=== PATIENT | male | born 2000 ===

== ENCOUNTER 2024-10-28 02:47 | Emergency (ER) | payer MEDICAID, SELFPAY ==
[2024-10-28 02:52] VITALS: BP 129/76; PULSE 82; RESP 16; TEMP 36.7; O2SAT 99; BMI 24.4
--- NOTE | 2024-10-28 03:13 | ED.URI ---
HPI - URI/Sore Throat General Chief Complaint: Upper Respiratory Symptoms Stated Complaint: Flu like Time Seen by Provider: 10/28/24 02:56 History of Present Illness ED Provider: Isaias Denise MD HPI Narrative: 23-year-old male with cough and phlegm production. Patient also reports sore throat he felt like he saw some white material possibly exudate on the tonsil and was concerned about they came in. No abdominal pain vomiting no chest pain. No ENT history. Related Data Allergies Allergy/AdvReac Type Severity Reaction Status Date / Time No Known Allergies Allergy Verified 10/28/24 02:54 [facility] Social History Social History Unable to assess alcohol history related to: Unknown Use of substances other than those prescribed or required for medical reasons: Unknown Advance Directives: No Advance Directives Information Provided: Yes Physical Exam Exam: Exam: GENERAL: Well appearing. No apparent distress. Alert. HEAD/NECK: No visual trauma. EYES: Normal to inspection. No conjunctival erythema. No discharge. ENMT: Hearing grossly normal. External nose normal. Throat with mild erythema throughout minimal enlargement of the tonsils. Uvula is midline. Tonsil may have very small area of exudate versus favored tonsillolith. No stridor. Supple neck normal voice RESPIRATORY: Respiratory effort normal. CARDIOVASCULAR: Additional details (Grossly well perfused). SKIN: No jaundice. NEUROLOGICAL: Alert. Moving all extremities x4. Additional details (No gross motor deficits. Normal tone. ). PSYCHIATRIC: Alert. Appearance appropriate for situation. Vital Signs: Vital Signs: Last Vital Signs Temp 98.1 F 10/28/24 04:20 Pulse 82 10/28/24 04:20 Resp 16 10/28/24 04:20 BP 129/76 10/28/24 04:20 Pulse Ox 99 10/28/24 04:20 O2 Del Method Room Air 10/28/24 04:20 BMI result Body Mass Index 24.4 Medical Decision Making Medical Decision Making MDM Narrative: Medical Decision Making: [age] male with sore throat URI symptoms very well-appearing healthy non immunocompromise. Supple neck with possible pharyngitis mild strep negative viral testing reassuring. Patient was reassured and discharged He had clear lungs normal oxygen normal respiratory effort no indication for chest x-ray Preliminary Favored Differential Diagnosis: Pharyngitis, strep, viral syndrome among additional considered etiologies Testing Interpreted Independently: ?See below for details Radiology or Lab testing Results Reviewed: ?See below for details Consults: ?See below for details Independent Historians/External Chart Reviews: ?See below for details Social Determinants of Health Impacting MDM/Planning: ?See below for details Lab Data Labs: Lab Results 10/28/24 Range/Units 02:59 COVID-19 ([facility]) Negative (Negative) COVID-19 Clin Com See Note Influenza Type A (CHANI) Negative (Negative) Influenza Type B (CHANI) Negative (Negative) Influenza A & B Note See Note S. pyogenes GrpA CHANI Negative (Negative) Discharge Plan Discharge Clinical Impression: Pharyngitis Patient Disposition: Home, Self-Care Instructions: Pharyngitis (ED), Upper Respiratory Infection (ED) Interventions: ED Discharge Assessment Last Done: 10/28/24 04:20 Discharge Date/Time: 10/28/24 04:21 Print Language: Romanian
[2024-10-28 03:14] LABS: IDNOW Serial# 08D9AD1C; Strep A Nucleic Acid Negative (Negative)
[2024-10-28 03:24] LABS: COVID-19 Test Negative (Negative); IDNOW Serial# 55D5AD1C; IDNOW Serial# 58CA691E; Influenza B2 Negative (Negative)
--- OUTSIDE RECORDS SUMMARY | 2024-10-28 03:44 | XMS_ITS | Clinical Summary ---
Author Organization [facility] Address [address] [place] [address] Care Team Providers Care Associate Research Scientist Name Role Phone Unavailable Primary Care Provider Unavailabl e Source Comments PLEASE NOTE, if this patient is a minor, it may be UNLAWFUL to discuss sensitive information that is contained in these records (such as FAMILY PLANNING, MENTAL HEALTH or SUBSTANCE ABUSE) with the minor patient's parent or other person without the patient's specific authorization.[facility] Immunizations Immunization Administration Dates Next Due Moderna COVID-19 Vaccine, re d cap blue label, 12+ Primary Series 08/06/2020,07/09/2020 Social History Tobacco Use Types Packs/Day Years Used Date Smoking Tobacco: Never Assessed Social Connections Answer Date Recorded Social Connections and Isolation 0 08/13/2023 Financial Resource Strain Answer Date R ecorded Financial Resource Strain 0 2023 Stress Answer Date Recorded Stress 0 08/13/2023 Physical Activity Answer Date Recorded Physical Activity 0 08/13/2023 Food Insecurity Answer Date Recorded Food 0 08/13/2023 Transportation Needs Answer Date Record ed Transportation 0 08/13/2023 Housing Stability Answer Date Recorded Housing 0 08/13/2023 Safety and Environment Answer Date Matt rded Safety 0 08/13/2023 Utilities Answer Date Recorded Utilities 0 08/13/2023 Employment Answer Date Recorded Employment 0 08/13/2023 Sex and Gender Information Value Date Recorded Sex Assigned at Not on file Legal Sex Male 11:46 AM PDT Gender Identity Not on file Sexual Orientation Not on file Plan of Treatment Health Maintenance Due Date Last Done Comments Anxiety Screening 1999 Hepatitis C Screening 1999 Tobacco Screening 1999 Imm-Varicella (1 of 2 - 13+ 2-dose series) 11/17/2012 HIV Screening 11/17/2014 Imm-HPV (1 - Male 3-dose series) 11/17/2014 Hypertension Screening (#1) 11/17/2017 Imm-DTaP/Tdap/Td (1 - Tdap) 11/17/2018 Imm-Hepatitis B (1 of 3 - 19 + 3-dose series) 11/17/2018 Alcohol and Drug Screen 02/08/2024 Depression Annual Screen 02/08/2024 [id number] ( season) 2024 021, 07/09/2020 Imm-Influenza (#1) 2024 Insurance [place] MEDICAID
--- OUTSIDE RECORDS SUMMARY | 2024-10-28 03:44 | XMS_ITS | Clinical Summary ---
Author Organization [employer] Address [address] [facility] [place] [address] Care Team Providers Care Maintenance Aide Name Role Phone Unavailable Primary Care Provider Unavailabl e Encounters Date Type Department Care Team Description 08/02/2024 Telephone [facility] [address] [place] [address] Anthony White MD from Last 3 Months Social History Tobacco Use Types Packs/Day Years Used Date Smoking Tobacco: Never Assessed Sex and Gender Information Value Date Recorded Sex Assigned at Male 06/28/2024 11:00 AM EDT Legal Sex Male 10:37 AM EDT Gender Identity Male 06/28/2024 11:00 AM EDT Sexual Orientation Not on file Plan of Treatment Health Maintenance Due Date Last Done Comments Depression Screening 1999 HIV Screening 1999 SDOH Screening 1999 Disability Screening 1999 Alcohol/Substance Use Screening 2011 Tobacco Screening 2011 Family Planning (PISQ) 11/17/2014 HPV Vaccines (1 - Male 3-dos e series) 11/17/2014 Hepatitis C Screening 11/17/2017 DTaP/Tdap/Td Vaccines (1 - Tdap) 11/17/2018 Hepatitis B Vaccines (1 of 3 - 19+ 3-dose series) 11/17/2018 COVID-19 Vaccine (1 - 2023-2 5 season) 2024 Influenza Vaccine (#1) 2024 Zoster Vaccines (1 of 2) 11/17/2049 RSV Patients and Pa tients Aged 60 years or older (1 - 1-dose 75+ series) 11/17/2074 HIB Vaccines Aged Out No longer eligi ble based on patient's age to complete this topic Hepatitis A Vaccines Aged Out No long er eligible based on patient's age to complete this topic IPV Vaccines Aged Out No longer eligi ble based on patient's age to complete this topic Meningococcal B Vaccine Aged Out No l onger eligible based on patient's age to complete this topic Meningococcal Vaccine Aged Out No judit alondra eligible based on patient's age to complete this topic Pneumococcal Vaccine: Pediat rics (0 to 5 Years) and At-Risk Patients (6 to 49) Years Aged Out No longer eligible b ased on patient's age to complete this topic RSV under 20 months Aged Out No longe r eligible based on patient's age to complete this topic Rotavirus Vaccines Aged Out No longer eligible based on patient's age to complete this topic Insurance [facility] C3
[2024-10-28 04:20] VITALS: BP 129/76; PULSE 82; RESP 16; TEMP 36.7; O2SAT 99
== END 2024-10-28 04:21 | disposition home or self-care (01) ==
PROVIDERS: Emergency Provider Emergency Medicine
DX: J02.9 Acute pharyngitis, unspecified (principal); Z11.52 Encounter for screening for COVID-19
CPT/HCPCS: 87502; 87635; 87651; 99283; 99284

== ENCOUNTER 2024-10-30 11:27 | Emergency (ER) | payer MEDICAID, SELFPAY ==
--- NOTE | ~2024-10-30 | XR_ITS ---
EXAMINATION: XR CHEST CLINICAL INFORMATION: chest pain, sob COMPARISON: None available. TECHNIQUE: 2 views of the chest were obtained. FINDINGS: The cardiac, hilar, and mediastinal contours are normal. The lungs are clear bilaterally. There is no pneumothorax or pleural effusion. There is no focal osseous or soft tissue abnormality. XR/XR chest 2V IMPRESSION: Normal chest. Electronically signed by: Abiodun Saenz MD 10/30/2024 12:14 PM EDT
--- NOTE | ~2024-10-30 | CT_ITS ---
EXAMINATION: CT ANGIOGRAM CHEST CLINICAL INFORMATION: Elevated d-dimer, pleuritic chest pain COMPARISON: None available. TECHNIQUE: Multiple axial images were obtained through the chest after the administration of 65 mL of Omnipaque 350 intravenous contrast. Extensive vascular post-processing including two-dimensional and three-dimensional reformatted images were created and reviewed on an independent workstation. This CT examination was performed using dose optimization techniques as appropriate, variously including the following: *Automated exposure control *Adjustment of mA and/or kV according to patient size (this includes techniques or standardized protocols for targeted exams where dose is matched to indication/reason for exam; i.e. extremities or head) *Use of iterative reconstruction technique FINDINGS: QUALITY OF STUDY/CONTRAST BOLUS: Suboptimal with incomplete opacification of tertiary branches. PULMONARY ARTERIES: No central pulmonary emboli. Emboli of small peripheral vessels cannot be excluded with certainty. THORACIC AORTA: Unremarkable LUNGS AND PLEURA: Lungs are clear. There is no pleural effusion or pleural thickening. MEDIASTINUM: No mass, adenopathy, or other abnormality seen. There is mildly prominent thymic tissue CORONARY ARTERY CALCIFICATION: None CHEST WALL/AXILLA: No axillary or internal mammary lymphadenopathy. UPPER ABDOMEN: Unremarkable BONES: There are no degenerative changes and no visible fractures. CT/CT angio chest PE protocol IMPRESSION: No filling defects are identified in the pulmonary arteries. There is incomplete opacification of tertiary branches. Fleischner guidelines were followed. Electronically signed by: Xu Shelley MD 10/30/2024 01:39 PM EDT
[2024-10-30 11:45] VITALS: BP 128/71; PULSE 98; RESP 16; TEMP 36.6; O2SAT 96; BMI 23.6
--- NOTE | 2024-10-30 11:46 | ED_ITS ---
HPI - General Adult General Chief complaint: Chest Pain Stated complaint: Follow up Time Seen by Provider: 10/30/24 12:29 History of Present Illness ED Provider: Isaias Denise MD HPI narrative: 23-year-old healthy male who in fact I saw 72 hours ago overnight he had a pharyngitis URI presentation. Now complaining of pleuritic pain Related Data Allergies Allergy/AdvReac Type Severity Reaction Status Date / Time No Known Allergies Allergy Verified 10/30/24 11:47 [facility] Social History Social History Smoked in Last 30 Days: No Use of substances other than those prescribed or required for medical reasons: No Advance Directives: No Advance Directives Information Provided: Yes Do you have a plan to hurt others: No Plan Physical Exam ED Vital Signs: Vital Signs - 24 hr 10/30/24 14:37 10/30/24 14:39 10/30/24 15:22 Temperature 98.3 F 98.3 F Pulse Rate 79 75 Respiratory Rate 15 15 Blood Pressure 116/63 116/63 Pulse Oximetry 93 93 Oxygen Delivery Method Room Air Room Air BMI result Body Mass Index 23.6 Course Course Course Narrative: This is a Rapid Medical Examination (RME) performed by Grace Bahena PA-C in triage. Full HPI, ROS, assessment and treatment plan per primary provider in the Main ED. Hx: 23 yo M here for eval of chest pain x this morning. diagnosed w/ pharyngitis on 10/28/24. he is now having sternal chest pain primarily w/ deep breathing and shortness of breath on exertion. he was using a humidifer yesterday - is unsure of this is related. he states he was descending stairs yesterday, felt SOB, and syncopized. he came to approx 1 min later, and walked upstairs to sleep. denies head strike. reports pain to right buttock s/p fall, no difficulty walking. Plan: labs, ekg, cxr Medications Administered Discontinued Medications Generic Name Dose Route Start Last Admin Trade Name Freq PRN Reason Stop Dose Admin Dexamethasone 10 mg 10/30/24 13:14 10/30/24 13:23 Dexamethasone 2 Mg Tablet PO 10/30/24 13:15 10 mg ONCE ONE Administration Ibuprofen 600 mg 10/30/24 12:30 10/30/24 13:22 Ibuprofen 600 Mg Tablet PO 10/30/24 12:31 600 mg ONCE ONE Administration Iohexol 100 ml 10/30/24 13:14 10/30/24 13:15 Iohexol 350 Mg/Ml 100 Ml Infus..Btl IV 10/30/24 13:15 65 ml ONCE ONE Administration Lidocaine/Diphenhydr/Alum/Mg/Simeth 10 ml 10/30/24 13:14 10/30/24 13:24 Mag&Al/Sim/Diphenhyd/Lidocaine 10 Ml Oral.Susp PO 10/30/24 13:15 10 ml ONCE ONE Administration Protocol Procedures Procedure Narrative Procedure Narrative: EMERGENCY ULTRASOUND INTERPRETATION-Limited Echocardiography [This study was ordered, performed, and interpreted by myself. The study reveals: Impression: NORMAL LV FUNCTION, NO RV DYSFUNCTION, NO PERICARDIAL EFFUSION] [Emergent Cardiac for Indication: Views Used: PLAX, PSSA, A4, SX, IVC Pericardial Effusion/Tamponade Findings: NONE RV Dilation (> LV diam in 4ch apical): NONE Global LV Fxn: NORMAL IVC Dilation and Resp Variation: NORMAL Performed by: MD Camelia Images were stored CPT:22775] Medical Decision Making Medical Decision Making MDM Narrative: Medical Decision Makin-year-old male with pleuritic pain in the setting of cough URI symptoms sore throat. Heart rate 98 chest x-ray clear no pneumothorax no infiltrate due to the patient's read presentation and pleuritic pain felt it prudent to exclude PE. D-dimer was sent which was elevated however CTA excludes PE. No clinical symptomatology of DVT doubt this. Throat looks mildly erythematous but no evidence of SOCIAL SERVICE DIRECTOR, strep negative Advise continue with supportive therapy at home Preliminary Favored Differential Diagnosis: PE, pleuritis, among additional considered etiologies Testing Interpreted Independently: ?See below for details Radiology or Lab testing Results Reviewed: ?See below for details Consults: ?See below for details Independent Historians/External Chart Reviews: ?See below for details Social Determinants of Health Impacting MDM/Planning: ?See below for details Lab Data MDM Lab Attestation statement: I reviewed the patient's lab results. 10/30/24 12:00 10/30/24 12:00 Labs: Lab Results 10/30/24 10/30/24 10/30/24 Range/Units 12:00 12:35 13:20 WBC 15.2 H (4.8-10.8) X10*3/uL RBC 5.37 (4.60-5.80) X10*6/uL Hgb 16.2 (14.0-18.0) g/dl Hct 45.7 (42.0-52.0) % MCV 85.1 (80.0-98.0) fL MCH 30.2 (27.0-33.0) pg MCHC 35.4 (31.0-36.0) g/dl RDW 12.0 (11.0-16.0) % Plt Count 211 (160-400) X10*3/uL MPV 10.5 (9.4-12.4) fL Immature Gran % (Auto) Cancelled Neut % (Auto) Cancelled Lymph % (Auto) Cancelled Whitley % (Auto) Cancelled Eos % (Auto) Cancelled Baso % (Auto) Cancelled Lymph # (Auto) Cancelled Whitley # (Auto) Cancelled Eos # (Auto) Cancelled Baso # (Auto) Cancelled Abs Immat Gran (auto) Cancelled Absolute Neuts (auto) Cancelled Absolute Nucleated RBC 0.000 (0.0-0.012) X10*3/uL Nucleated RBC % (auto) 0.0 (0.0-0.2) /100WBC Neutrophils % (Manual) 77 H (45-73) % Band Neutrophils % 2 L (3-5) % Lymphocytes % (Manual) 9 L (20-40) % Monocytes % (Manual) 12 H (2-11) % Abs Neuts (Manual) 12.0 H (2.0-8.3) X10*3/uL Lymphocytes # (Manual) 1.4 (1.2-4.9) X10*3/uL Monocytes # (Manual) 1.8 H (0.1-1.2) X10*3/uL Toxic Vacuolation PRESENT Platelet Estimate NORMAL (NORMAL) Plt Morphology Comment NORMAL RBC Morphology NORMAL D-Dimer High Sensitivty 613 NG/ML Sodium 138 (135-145) mmol/L Potassium 4.1 (3.3-5.1) mmol/L Chloride 104 (96-108) mmol/L Carbon Dioxide 26 (22-29) mmol/L Anion Gap 12 (12-20) BUN 10 (9-16) mg/dL Creatinine 0.98 (0.5-1.4) mg/dL Estim Creat Clear Calc 123.7 Estimated GFR > 60 Random Glucose 99 (60-115) mg/dL Calcium 9.5 (8.4-10.2) mg/dL Magnesium 1.9 (1.6-2.6) mg/dL Total Bilirubin 1.1 H (0.0-1.0) mg/dL AST 27 (5-37) U/L ALT 15 (0-40) U/L Alkaline Phosphatase 77 (39-117) U/L Troponin I High Sens < 2.7 (<3.5-35.0) ng/L Total Protein 7.9 (6.5-8.0) g/dL Albumin 4.7 (3.5-5.0) g/dL Lipase 11 (8-78) U/L S. pyogenes GrpA CHANI Negative (Negative) Independent Interpretation I performed an independent interpretation of an: EKG (Sinus rhythm no acute ischemic changes) and Plain X-Ray Interpretation: no infiltrate no pneumothorax Radiology Impression Discussion of test interpretation with radiology: I have reviewed the radiologist's reading. ( CT negative for PE) Discharge Plan Discharge Clinical Impression: Atypical chest pain Patient Disposition: Home, Self-Care Instructions: Chest Pain (ED) Additional Instructions: In the emergency department today you were evaluated for chest pain in the setting of recent upper respiratory infection. Your throat appears improved and once again use tested negative for strep a bacterial throat infection. This is likely a viral upper respiratory infection. Interventions: ED Discharge Assessment Last Done: 10/30/24 15:22 Discharge Date/Time: 10/30/24 15:22 Print Language: [place]
--- NOTE | 2024-10-30 11:49 | ECG_ITS ---
Test Reason : CP Blood Pressure : */* mmHG Vent. Rate : 90 BPM Atrial Rate : 90 BPM P-R Int : 122 ms QRS Dur : 96 ms QT Int : 350 ms P-R-T Axes : 55 21 27 degrees QTcB Int : 428 ms Normal sinus rhythm RSR' or QR pattern in V1 suggests right ventricular conduction delay Borderline ECG No previous ECGs available Referred By: Sophie Bahena Electronically Signed By: Colin Tran
[2024-10-30 12:18] LABS: Hematocrit 45.7 % (42.0-52.0); Hemoglobin 16.2 g/dl (14.0-18.0); Mean Corpuscular HGB Conc 35.4 g/dl (31.0-36.0); Mean Corpuscular Hemoglobin 30.2 pg (27.0-33.0); Mean Corpuscular Volume 85.1 fL (80.0-98.0); NRBC Abs Auto 0.000 X10*3/uL (0.0-0.012); NRBC Pct Auto 0.0 /100WBC (0.0-0.2); Platelet Count 211 X10*3/uL (160-400); Red Blood Count 5.37 X10*6/uL (4.60-5.80); White Blood Count 15.2 X10*3/uL (4.8-10.8)
[2024-10-30 12:27] LABS: Alanine Aminotransferase 15 U/L (0-40); Albumin Level 4.7 g/dL (3.5-5.0); Alkaline Phosphatase 77 U/L (39-117); Anion Gap 12 (12-20); Aspartate Amino Transferase 27 U/L (5-37); Blood Urea Nitrogen 10 mg/dL (9-16); Calcium 9.5 mg/dL (8.4-10.2); Carbon Dioxide 26 mmol/L (22-29); Chloride 104 mmol/L (96-108); Creatinine Clr Calc Pharmacy 123.7; Estimated Glomerular Filt Rate > 60; Lipase 11 U/L (8-78); Magnesium 1.9 mg/dL (1.6-2.6); Potassium 4.1 mmol/L (3.3-5.1); Sodium 138 mmol/L (135-145); Total Protein 7.9 g/dL (6.5-8.0)
[2024-10-30 12:37] LABS: Troponin-I High Sensitivity < 2.7 ng/L (<3.5-35.0)
[2024-10-30 12:50] LABS: D Dimer High Sensitivity 613 NG/ML
[2024-10-30 12:55] LABS: Band Neutrophils Percent 2 % (3-5); Lymphocytes Absolute Manual 1.4 X10*3/uL (1.2-4.9); Lymphocytes Percent Manual 9 % (20-40); Monocytes Absolute Manual 1.8 X10*3/uL (0.1-1.2); Monocytes Percent Manual 12 % (2-11); Neutrophils Absolute Manual 12.0 X10*3/uL (2.0-8.3); Neutrophils Percent Manual 77 % (45-73)
[2024-10-30 12:56] LABS: RBC Morphology NORMAL; Toxic Vacuolation PRESENT
[2024-10-30] MEDS: iohexoL 350 MG/ML 100 ML INFUS..BTL IV (13:15)
[2024-10-30 13:21] VITALS: BP 132/78; PULSE 88; RESP 17; TEMP 36.7; O2SAT 98
[2024-10-30] MEDS: Mag&Al/Sim/Diphenhyd/Lidocaine 10 ML ORAL.SUSP PO (13:24)
[2024-10-30 13:54] LABS: IDNOW Serial# 152EDE1D; Strep A Nucleic Acid Negative (Negative)
[2024-10-30 14:37] VITALS: BP 116/63; PULSE 79; RESP 15; O2SAT 93
[2024-10-30 14:39] VITALS: TEMP 36.8
[2024-10-30 15:22] VITALS: BP 116/63; PULSE 75; RESP 15; TEMP 36.8; O2SAT 93
--- OUTSIDE RECORDS SUMMARY | 2024-10-30 15:52 | XMS_ITS | Clinical Summary ---
Author Organization [employer] Address [address] [facility] [address] [facility] [address] [place] [address] Care Team Providers Care Bulwark Carpenter Name Role Phone Unavailable Primary Care Provider Unavailabl e Encounters Date Type Department Care Team Description 08/02/2024 Telephone [facility] [address] [place] [address] Anthony White MD from Last 3 Months [...] patient's age to complete this topic Insurance [facility] C3
--- OUTSIDE RECORDS SUMMARY | 2024-10-30 15:52 | XMS_ITS | Clinical Summary ---
Author Organization [facility] Address [address] [place] [address] Care Team Providers Care Pensionholder Information Clerk Name Role Phone Unavailable Primary Care Provider [...] Drug Screen 02/08/2024 Depression Annual Screen 02/08/2024 [id number] ( season) 2024 021, 07/09/2020 Imm-Influenza (#1) 2024 Insurance [place]
== END 2024-10-30 15:22 | disposition home or self-care (01) ==
PROVIDERS: Physician Assistant Medical; Emergency Provider Emergency Medicine
DX: R07.81 Pleurodynia (principal)
CPT/HCPCS: 36415; 71046; 71275; 80053; 83690; 83735; 84484; 85007; 85027; 85379; 87651; 93005; 99285; J8540; Q9967

== ENCOUNTER → 2024-10-30 11:49 | Outpatient (BNV) | payer MEDICAID, SELFPAY | PROVIDERS: Emergency Provider Emergency Medicine; Visit Provider Radiology Diagnostic Radiology | DX: R07.1 Chest pain on breathing (principal); R79.89 Other specified abnormal findings of blood chemistry; R06.02 Shortness of breath | CPT/HCPCS: 71046; 71275 ==

== ENCOUNTER → 2024-10-30 11:49 | Outpatient (BNV) | payer MEDICAID, SELFPAY | PROVIDERS: Emergency Provider Emergency Medicine; Visit Provider Internal Medicine Cardiovascular Disease | DX: R07.2 Precordial pain (principal) | CPT/HCPCS: 93010 ==

== ENCOUNTER 2025-01-21 04:22 | Emergency (ER) | payer MEDICAID, SELFPAY ==
[2025-01-21 04:24] VITALS: BP 125/64; PULSE 73; RESP 16; TEMP 36.4; O2SAT 99; BMI 19.5
[2025-01-21 04:50] LABS: Hematocrit 52.4 % (42.0-52.0); Hemoglobin 18.2 g/dl (14.0-18.0); Imm Gran Abs Auto 0.03 X10*3/uL (0.00-0.03); Imm Gran Pct Auto 0.5 % (0.0-0.4); Lymphocytes Absolute Auto 1.5 X10*3/uL (1.2-4.9); MANUAL DIFF FLAG NO; Mean Corpuscular HGB Conc 34.7 g/dl (31.0-36.0); Mean Corpuscular Hemoglobin 29.4 pg (27.0-33.0); Mean Corpuscular Volume 84.7 fL (80.0-98.0); NRBC Abs Auto 0.000 X10*3/uL (0.0-0.012); NRBC Pct Auto 0.0 /100WBC (0.0-0.2); Platelet Count 224 X10*3/uL (160-400); Red Blood Count 6.19 X10*6/uL (4.60-5.80); White Blood Count 5.7 X10*3/uL (4.8-10.8)
[2025-01-21 05:12] LABS: IDNOW Serial# 16C4AD1C
[2025-01-21 05:13] LABS: COVID-19 Test Negative (Negative); IDNOW Serial# 152EDE1D; Influenza B2 Negative (Negative)
[2025-01-21 05:37] VITALS: BP 121/63; PULSE 68; RESP 20; TEMP 36.8; O2SAT 98
--- OUTSIDE RECORDS SUMMARY | 2025-01-21 05:57 | XMS_ITS | Clinical Summary ---
Author Organization [employer] Address [address] [facility] [address] [place] [address] Care Team Providers Care Hide Cleaner Name Role Phone Unavailable Primary Care Provider Unavailabl e Social History Tobacco Use Types Packs/Day Years [...] 3-dose series) 11/17/2018 COVID-19 Vaccine (1 - 2024-2 6 season) 2024 Influenza Vaccine (#1) 2024 Zoster [...] patient's age to complete this topic Insurance [facility] C3
[2025-01-21 06:02] LABS: Alanine Aminotransferase 29 U/L (0-40); Albumin Level 5.2 g/dL (3.5-5.0); Alkaline Phosphatase 70 U/L (39-117); Anion Gap 13 (12-20); Aspartate Amino Transferase 41 U/L (5-37); Blood Urea Nitrogen 15 mg/dL (9-16); Calcium 9.3 mg/dL (8.4-10.2); Carbon Dioxide 24 mmol/L (22-29); Chloride 107 mmol/L (96-108); Creatinine Clr Calc Pharmacy 103.4; Estimated Glomerular Filt Rate > 60; Potassium 3.9 mmol/L (3.3-5.1); Sodium 140 mmol/L (135-145); Total Protein 7.9 g/dL (6.5-8.0)
--- NOTE | 2025-01-21 06:10 | ED_ITS ---
HPI - General Adult General Chief complaint: Nausea/Vomiting/Diarrhea Stated complaint: stomach pain, n/v/d Time Seen by Provider: 01/21/25 06:08 Source: patient Mode of arrival: ambulatory Limitations: no limitations History of Present Illness ED Provider: Dr. Issa [facility] narrative: 24-year-old male presented hospital today for nausea vomiting and diarrhea since Tuesday. Patient stated that he has been having 6 diarrhea episode per day. Has been having continuous nausea and vomiting. Has not been taking any medicine. This is still continuing therefore he presents to the hospital for evaluation. The patient stated that he does feel weak. He is complaining of left lower quadrant abdominal tenderness. Related Data Previous Rx's ?Medication ?Instructions ?Recorded loperamide 2 mg capsule (Imodium 2 mg PO Q4H PRN loose stool #20 01/21/25 A-D) caps ondansetron 4 mg disintegrating 4 mg PO Q8H PRN nausea and 01/21/25 tablet vomiting #14 tabs Allergies Allergy/AdvReac Type Severity Reaction Status Date / Time No Known Allergies Allergy Verified 01/21/25 04:25 Review of Systems 2 Review of Systems: Pertinent review of systems as mentioned in HPI. All other system otherwise negative. [facility]LY [facility], [facility] Past Medical History [facility] Narrative: None Social History Social History Smoked in Last 30 Days: No Use of substances other than those prescribed or required for medical reasons: No Advance Directives: No Advance Directives Information Provided: No Do you have a plan to hurt others: No Plan Physical Exam ED Exam Exam: General: Pleasant, no distress, interacting appropriately Head: Normacephalic, atraumatic ENT: oral mucosa dry, neck supple, no tracheal deviation Gastrointestinal: Soft, non distended, left-sided abdominal tenderness on palpation Neurological: Awake and alert, no facial droop noted Skin: Warm and dry Psychiatric: Appropriate mood and thoughts Vital Signs: Vital Signs - 24 hr 01/21/25 04:24 01/21/25 05:37 01/21/25 07:36 Temperature 97.5 F 98.2 F 97.8 F Pulse Rate 73 68 60 Respiratory Rate 16 20 16 Blood Pressure 125/64 121/63 113/64 Pulse Oximetry 99 98 98 Oxygen Delivery Method Room Air Room Air Room Air BMI result Body Mass Index 19.5 Medications Administered Discontinued Medications Generic Name Dose Route Start Last Admin Trade Name Freq PRN Reason Stop Dose Admin Sodium Chloride 1,000 mls @ 999 mls/hr 01/21/25 06:30 01/21/25 07:06 Ns IV 01/21/25 07:30 999 mls/hr .Q1H1M RISHI Administration Loperamide HCl 6 mg 01/21/25 06:29 01/21/25 07:07 Loperamide Hcl 2 Mg Capsule PO 01/21/25 06:30 6 mg ONCE ONE Administration Ondansetron HCl 4 mg 01/21/25 06:29 01/21/25 07:07 Ondansetron Hcl 4 Mg/2 Ml Vial IVPUSH 01/21/25 06:30 4 mg ONCE ONE Administration Medical Decision Making Medical Decision Making [facility] Narrative: This is a 24-year-old male presented hospital today for nausea vomiting and diarrhea since Tuesday. I suspect this is likely viral gastroenteritis with his symptoms. However patient states he does feel weak and dehydrated. We will plan to give patient some IV Zofran, p.o. Imodium and a bolus IV fluid. We will reassess patient afterward. Patient's lab work does shows elevated hemoglobin level likely secondary to dehydration. Chemistries unremarkable. Respiratory swab is negative. On reassessment the patient stated that he is feeling improved. We will no further episode of diarrhea. Patient will be discharged. Differential Diagnosis Differential Diagnoses: The differential diagnosis associated with the presentation includes Viral gastroenteritis, nausea, vomiting, dehydration Lab Data [facility] Lab Attestation statement: I reviewed the patient's lab results. 01/21/25 04:42 01/21/25 05:45 Labs: Lab Results 01/21/25 01/21/25 01/21/25 Range/Units 04:38 04:42 05:45 WBC 5.7 (4.8-10.8) X10*3/uL RBC 6.19 H (4.60-5.80) X10*6/uL Hgb 18.2 H (14.0-18.0) g/dl Hct 52.4 H (42.0-52.0) % MCV 84.7 (80.0-98.0) fL MCH 29.4 (27.0-33.0) pg MCHC 34.7 (31.0-36.0) g/dl RDW 11.9 (11.0-16.0) % Plt Count 224 (160-400) X10*3/uL MPV 11.2 (9.4-12.4) fL Immature Gran % (Auto) 0.5 H (0.0-0.4) % Neut % (Auto) 59.9 (45-73) % Lymph % (Auto) 26.5 (20-40) % [place] % (Auto) 11.9 H (2-11) % Eos % (Auto) 0.9 (0-4) % Baso % (Auto) 0.3 (0-2) % Lymph # (Auto) 1.5 (1.2-4.9) X10*3/uL [place] # (Auto) 0.7 (0.1-1.2) X10*3/uL Eos # (Auto) 0.1 (0.0-0.4) X10*3/uL Baso # (Auto) 0.0 (0.0-0.2) X10*3/uL Abs Immat Gran (auto) 0.03 (0.00-0.03) X10*3/uL Absolute Neuts (auto) 3.4 (2.0-8.3) x10*3/uL Absolute Nucleated RBC 0.000 (0.0-0.012) X10*3/uL Nucleated RBC % (auto) 0.0 (0.0-0.2) /100WBC Sodium 140 (135-145) mmol/L Potassium 3.9 (3.3-5.1) mmol/L Chloride 107 (96-108) mmol/L Carbon Dioxide 24 (22-29) mmol/L Anion Gap 13 (12-20) BUN 15 (9-16) mg/dL Creatinine 0.98 (0.5-1.4) mg/dL Estim Creat Clear Calc 103.4 Estimated GFR > 60 Random Glucose 84 (60-115) mg/dL Calcium 9.3 (8.4-10.2) mg/dL Total Bilirubin 0.9 (0.0-1.0) mg/dL AST 41 H (5-37) U/L ALT 29 (0-40) U/L Alkaline Phosphatase 70 (39-117) U/L Total Protein 7.9 (6.5-8.0) g/dL Albumin 5.2 H (3.5-5.0) g/dL COVID-19 ([facility]) Negative (Negative) COVID-19 Clin Com See Note Influenza Type A (CHANI) Negative (Negative) Influenza Type B (CHANI) Negative (Negative) Influenza A & B Note See Note Discharge Plan Discharge Clinical Impression: Gastroenteritis Patient Disposition: Home, Self-Care Instructions: Acute Nausea and Vomiting (ED) Prescriptions: New loperamide [Imodium A-D] 2 mg capsule 2 mg PO Q4H PRN (Reason: loose stool) Qty: 20 0RF Rx Instructions: administer after each loose stool until symptoms controlled; do not exceed 8 mg per 24 hrs ondansetron 4 mg tablet,disintegrating 4 mg PO Q8H PRN (Reason: nausea and vomiting) Qty: 14 0RF Stand Alone Forms: Work/School Release Print Language: Citizen Of [place]
[2025-01-21 07:36] VITALS: BP 113/64; PULSE 60; RESP 16; TEMP 36.6; O2SAT 98
--- NOTE | 2025-01-21 07:41 | PC.NURSE ---
This RN assumed care of patient @ 0700 Patient received 1L NS IV 20G RAC Patient reports feeling better after the fluids Patient being PO challenged at this time Provider notified
== END 2025-01-21 08:14 | disposition home or self-care (01) ==
PROVIDERS: Emergency Provider Student in an Organized Health Care Education/Training Program
DX: K52.9 Noninfective gastroenteritis and colitis, unspecified (principal); R10.9 Unspecified abdominal pain; R11.2 Nausea with vomiting, unspecified; Z03.818 Encounter for observation for suspected exposure to other biological agents ruled out
CPT/HCPCS: 80053; 85025; 87502; 87635; 96361; 96374; 99284; J2405